=== PATIENT | male | born 1980 | race Caucasian/White ===

== ENCOUNTER 2020-12-06 20:41 | Emergency (ER) | payer OTHER ==
[~2020-12-06] VITALS: Ht 177.8 cm; Wt 77.1 kg
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
--- NOTE | 2020-12-06 21:23 | NUR ---
PT TAKEN TO CT
--- NOTE | 2020-12-06 21:23 | NUR ---
PT TO RADIOLOGY DEPT VIA [facility].
[2020-12-06] MEDS ORDERED: IBUP-1957 PO (22:08)
[2020-12-06 22:35] VITALS: BP 129/86
--- NOTE | 2020-12-06 22:35 | NUR ---
Patient discharged to home in stable condition. Written and verbal after care instructions given. Patient verbalizes understanding of instruction.
== END 2020-12-06 22:36 | disposition home or self-care (01) ==
LOC: ER 20:56
DX: S02.2XXA Fracture of nasal bones, initial encounter for closed fracture (principal); S06.0X0A Concussion without loss of consciousness, initial encounter; F41.9 Anxiety disorder, unspecified; V49.69XA Unspecified car occupant injured in collision with other motor vehicles in traffic accident, initial encounter; Y93.89 Activity, other specified; Y92.413 State road as the place of occurrence of the external cause; Y99.8 Other external cause status
CPT/HCPCS: 70450-TC; 70486-TC; 70490-TC; 71045-TC